=== PATIENT | male | born 2000 ===

== ENCOUNTER → 2021-10-16 | Outpatient (CLI) | payer BC | LOC: M SOG 15:51 | PROVIDERS: ATTEND Orthopaedic Surgery Sports Medicine | DX: S43.101A Unspecified dislocation of right acromioclavicular joint, initial encounter (principal); X58.XXXA Exposure to other specified factors, initial encounter; Y92.89 Other specified places as the place of occurrence of the external cause; Y93.9 Activity, unspecified; Y99.9 Unspecified external cause status ==

== ENCOUNTER → 2021-11-24 | Outpatient (CLI) | payer BC | LOC: M SOG 13:14 | PROVIDERS: ATTEND Orthopaedic Surgery Sports Medicine | DX: M25.571 Pain in right ankle and joints of right foot (principal) ==